=== PATIENT | male | born 1990 | race Caucasian/White ===

== ENCOUNTER 2023-07-15 19:31 | Emergency (ER) | payer OTHER ==
[~2023-07-15] VITALS: Ht 177.8 cm; Wt 102.1 kg
[2023-07-15 19:47] VITALS: BP_SYST 144; PULSE 105; RESP 20; TEMP 98; O2SAT 95
[2023-07-15] MEDS ORDERED: LIDOCAINE 1% 10 MG/ML, 20 ML MDV INJ ONE (20:45)
[2023-07-15] MEDS ORDERED: DIPHTH,PERTUSS(ACELL),TET VAC 0.5 ML VIAL (Tdap) I.M. ONE (20:45)
[2023-07-15] MEDS ORDERED: BACITRACIN 1 GM OINT TP ONE (20:45)
[2023-07-15] MEDS ORDERED: IBUP-1971 PO (22:03)
== END 2023-07-15 22:05 | disposition home or self-care (01) ==
LOC: SED 19:31
DX: S71.112A Laceration without foreign body, left thigh, initial encounter (principal); Z79.899 Other long term (current) drug therapy; W11.XXXA Fall on and from ladder, initial encounter; Y93.89 Activity, other specified; Y92.89 Other specified places as the place of occurrence of the external cause; Y99.8 Other external cause status
CPT/HCPCS: 99283; 90715; 90471; 12001; J2001